=== PATIENT | female | born 1980 | race Caucasian/White ===

== ENCOUNTER 2017-10-01 19:54 | Emergency (ER) | payer BC ==
[2017-10-01 20:33] VITALS: BP 120/77; PULSE 94; TEMP 98.5; BMI 17.3
[2017-10-01] MEDS ORDERED: ALBUTEROL SO4 2.5/IPRATROPIUM 0.5 INH SOL 3 ML VIAL.NEB. NEB ONE ×2 (21:03→21:08)
[2017-10-01] MEDS ORDERED: DEXAMETHASONE SOD PHOSPHATE 10 MG/1 ML VIAL IVPUSH ONE (21:03)
--- NOTE | 2017-10-01 21:03 | PDOC ---
History of Present Illness - General Chief Complaint: Cold Symptoms Stated Complaint: COUGHING Time Seen by Provider: 10/01/17 20:55 History Source: Patient Exam Limitations: No Limitations - History of Present Illness Initial Comments: 10/01/17 21:24 MY CHIEF COMPLAINT: PRODUCTIVE COUGH FOR ONE WEEK HISTORY OF PRESENT ILLNESS: PT. IS A 37 Y/O FEMALE WITH NO SIGNIFICANT MEDICAL ISSUES HERE TODAY WITH PRODUCTIVE COUGH GREENISH YELLOWISH FOR ONE WEEK. PT. DENIES SHORTNESS OF BREATH. PT. DENIES SORE THROAT, NAUSEA, VOMITING, DIARRHEA OR FEVER. PT. DID NOT GET INFLUENZA VACCINE PT. DENIES ANY RECENT TRAVEL. Timing/Duration: getting worse (for one week ) Severity: moderate Associated Symptoms: reports: cough (productive yellowish, greenish ) Past History - Past Medical History Allergies/Adverse Reactions: Allergies Allergy/AdvReac Type Severity Reaction Status Date / Time No Known Allergies Allergy Verified 10/01/17 21:06 Home Medications: Ambulatory Orders Azithromycin [Zithromax 250mg Tablets -] 250 mg PO UTDICT #6 tab 10/01/17 Guaifenesin Dm [Mucinex Dm -] 1 tab PO Q12H PRN #10 tab.er.12h MDD 2 10/01/17 Anemia: No Asthma: No Cancer: No Cardiac Disorders: No CVA: No COPD: No DVT: No Dementia: No Diabetes: No Dialysis: No GI Disorders: No Disorders: No HTN: No Hypercholesterolemia: No Kidney Stones: No Liver Disease: No Psychiatric Problems: No Seizures: No Thyroid Disease: No Lung CA: No Other medical history: denies - Surgical History Abdominal Surgery: No Appendectomy: No Cardiac Surgery: No Cholecystectomy: No Gastric Stapling: No GI Surgery: No Lung Surgery: No Neurologic Surgery: No - Immunization History Immunization Up to Date: Yes - Suicide/Smoking/Psychosocial Hx Smoking History: Never smoked Information on smoking cessation initiated: No Hx Alcohol Use: Yes (Occasional wine) Drug/Substance Use Hx: No Substance Use Type: None Review of Systems - Review of Systems Constitutional: No: Symptoms Reported HEENTM: No: Symptoms Reported Respiratory: Yes: Productive cough (yellowish greenish). No: Cough, Orthopnea , Shortness of Breath, SOB with Exertion, SOB at Rest, Stridor, Wheezing, Hemoptysis Cardiac (ROS): No: Symptoms Reported ABD/GI: No: Symptoms Reported : No: Symptoms Reported Musculoskeletal: No: Symptoms Reported Integumentary: No: Symptoms Reported Neurological: No: Symptoms reported *Physical Exam - Vital Signs Last Vital Signs Temp Pulse Resp BP Pulse Ox 98.5 F 94 H 18 120/77 100 10/01/17 20:25 10/01/17 20:25 10/01/17 20:25 10/01/17 20:25 10/01/17 20:25 - Physical Exam General Appearance: Yes: Appropriately Dressed HEENT: positive: TMs Normal, Pharyngeal Erythema, Tonsillar Erythema (with no uvular deviation ). negative: Tonsillar Exudate, Nasal Congestion, Rhinorrhea, Sinus Tenderness Neck: positive: Lymphadenopathy (R), Lymphadenopathy (L) Respiratory/Chest: positive: Lungs Clear, Normal Breath Sounds. negative: Chest Tender, Respiratory Distress Cardiovascular: positive: Regular Rhythm, Regular Rate, S1, S2 Integumentary: positive: Normal Color Neurologic: positive: Alert, Normal Response, Responsive Medical Decision Making - Medical Decision Making 10/01/17 21:27 PT. IS A 37 Y/O FEMALE WITH NO SIGNIFICANT MEDICAL ISSUES HERE TODAY WITH PRODUCTIVE COUGH GREENISH YELLOWISH FOR ONE WEEK. PT. DENIES SHORTNESS OF BREATH. PT. DENIES SORE THROAT, NAUSEA, VOMITING, DIARRHEA OR FEVER. PT. DID NOT GET INFLUENZA VACCINE PT. DENIES ANY RECENT TRAVEL. PT. DENIES ANY CHANCE OF . PHARYNGITIS R/O STREP BRONCHITIS PLAN; DUONEB NOW AZITHROMYCIN 250 MG 2 TABS NOW THAN ONE TAB DAILY FOR THE FOLLOWING 4 DAYS MUCINEX DM 1 TAB Q12 HRS PRN COUGH # 10 TABS THROAT C & S NEGATIVE 10/01/17 21:29 *DC/Admit/Observation/Transfer Diagnosis at time of Disposition: Acute bronchitis Qualifiers: Bronchitis organism: unspecified organism Qualified Code(s): J20.9 - Acute bronchitis, unspecified - Discharge Dispostion Condition at time of disposition: Stable - Referrals Referrals: Braden Maki MD [Primary Care Provider] - - Patient Instructions Additional Instructions: FOLLOW UP WITH YOUR PRIMARY CARE PROVIDER WITHIN THE NEXT FEW DAYS DRINK A LOT OF FLUIDS AND REST RETURN TO EMERGENCY ROOM IF SYMPTOMS WORSEN PATIENT VOICED UNDERSTANDING OF DISCHARGE INSTRUCTIONS AND ALL QUESTIONS WERE ANSWERED THANK YOU FOR CHOOSING [facility] EMERGENCY ROOM FOR YOU MEDICAL NEEDS TODAY - Post Discharge Activity
[2017-10-01] MEDS ORDERED: DEXAMETHASONE SOD PHOSPHATE 10 MG/1 ML VIAL ONE (21:08)
== END 2017-10-01 21:33 | disposition home or self-care (01) ==
LOC: JERFT 19:54
PROC: 3E0F7GC Introduction of Other Therapeutic Substance into Respiratory Tract, Via Natural or Artificial Opening (ICD-10-PCS; principal; 2017-10-01)
PROC: 3E0333Z Introduction of Anti-inflammatory into Peripheral Vein, Percutaneous Approach (ICD-10-PCS; 2017-10-01)
DX: J20.9 Acute bronchitis, unspecified (principal)
CPT/HCPCS: 87070; 87430; 99281-25

== ENCOUNTER 2018-03-23 08:09 | Emergency (ER) | payer BC ==
[2018-03-23 08:25] VITALS: TEMP 98.3; BMI 17.3
[2018-03-23] MEDS ORDERED: SODIUM CHLORIDE 1,000 ML IV STA (09:06)
[2018-03-23 09:37] LABS: BASO % 1.1 % (0-2.0); EOS % 2.6 % (0-4.5); HEMOGLOBIN 13.7 GM/dL (10.7-15.3); LYMPH % 38.7 % (8-40); MCH 28.5 pg (25.7-33.7); MCHC 32.7 g/dl (32.0-36.0); MEAN CELL VOLUME 87.4 fl (80-96); MEAN PLT VOLUME 8.6 fl (7.5-11.1); MONO % 7.5 % (3.8-10.2); NEUT % 50.1 % (42.8-82.8); PLATELET COUNT 260 K/MM3 (134-434); WHITE BLOOD COUNT 5.3 K/mm3 (4.0-10.0)
[2018-03-23 09:47] LABS: URINE APPEARANCE CLEAR; URINE BILIRUBIN NEGATIVE (<2.0 mg/dL); URINE COLOR COLORLESS; URINE GLUCOSE (UA) NEGATIVE (NEGATIVE); URINE KETONE NEGATIVE (NEGATIVE); URINE LEUK ESTERASE NEGATIVE (NEGATIVE); URINE NITRITE NEGATIVE (NEGATIVE); URINE PROTEIN NEGATIVE (NEGATIVE); URINE UROBILINOGEN NEGATIVE mg/dL (0.2-1.0)
[2018-03-23 09:48] LABS: HCG,QUALITATIVE URINE NEGATIVE
--- NOTE | 2018-03-23 09:54 | PDOC ---
History of Present Illness - General Chief Complaint: Lightheaded Stated Complaint: HEADACHES, DIZZINESS Time Seen by Provider: 03/23/18 09:04 History Source: Patient Exam Limitations: No Limitations - History of Present Illness Initial Comments: 03/23/18 09:27 38-year-old female presenting to ED with complaints of generalized fatigue, intermittent lightheadedness with movement, and shortness of breath on exertion x 4 days. Patient states she was finishing her menses yesterday which was heavy for the past 5 days. She states has had menses for approximately one year stating she goes through approximately 5-6 pads in day 2-3. Patient states is extremely exhausted on day 4-5 but normally trends to baseline which she has not. Patient denies history of endometriosis, fibroids, but states had anemia as a teenager. Ptr denies fever, chest pain, calf pain, recent travel, exogenous estrogen usage, recent weight change, change in appetite, or other medical history. Timing/Duration: intermittent Severity: moderate Associated Symptoms: reports: malaise, shortness of breath (with exertion), weakness Past History - Travel Traveled outside of the country in the last 30 days: No - Past Medical History Allergies/Adverse Reactions: Allergies Allergy/AdvReac Type Severity Reaction Status Date / Time No Known Allergies Allergy Verified 03/23/18 08:22 Home Medications: Ambulatory Orders NK [No Known Home Medication] 03/23/18 Anemia: No Asthma: No Cancer: No Cardiac Disorders: No CVA: No COPD: No DVT: No Dementia: No Diabetes: No Dialysis: No GI Disorders: No Disorders: No HTN: No Hypercholesterolemia: No Kidney Stones: No Liver Disease: No Psychiatric Problems: No Seizures: No Thyroid Disease: No Lung CA: No Other medical history: DENIES. - Surgical History Abdominal Surgery: No Appendectomy: No Cardiac Surgery: No Cholecystectomy: No Gastric Stapling: No GI Surgery: No Lung Surgery: No Neurologic Surgery: No - Immunization History Immunization Up to Date: Yes - Suicide/Smoking/Psychosocial Hx Smoking History: Never smoked Hx Alcohol Use: Yes (Occasional wine) Drug/Substance Use Hx: No Substance Use Type: None Patient Lives Alone: No Lives with/in: spouse/SO Review of Systems - Review of Systems Able to Perform ROS?: Yes Constitutional: Yes: Malaise, Weakness, Weight Stable. No: Unintentional Wgt. Loss, Unexplained wgt Loss HEENTM: No: Symptoms Reported Respiratory: Yes: SOB with Exertion Cardiac (ROS): Yes: Symptoms Reported, Lightheadedness (intermittent with movement x 4 days) ABD/GI: No: Symptoms Reported : No: Symptoms Reported Musculoskeletal: No: Symptoms Reported Integumentary: No: Symptoms Reported Neurological: Yes: Weakness, Dizziness Endocrine: No: Symptoms Reported Hematologic/Lymphatic: No: Symptoms Reported *Physical Exam - Vital Signs Last Vital Signs Temp Pulse Resp BP Pulse Ox 98.3 F 70 17 112/74 100 03/23/18 08:22 03/23/18 08:22 03/23/18 08:22 03/23/18 08:22 03/23/18 08:22 - Physical Exam General Appearance: Yes: Nourished, Appropriately Dressed. No: Apparent Distress HEENT: positive: EOMI, FANTA. negative: Pale Conjunctivae Neck: positive: Normal Thyroid, Supple Respiratory/Chest: positive: Lungs Clear, Normal Breath Sounds. negative: Respiratory Distress, Accessory Muscle Use Cardiovascular: positive: Regular Rhythm, Regular Rate. negative: Murmur Gastrointestinal/Abdominal: positive: Soft, Tenderness Extremity: positive: Normal Capillary Refill. negative: Pedal Edema Integumentary: positive: Normal Color, Warm, Moist Neurologic: positive: Motor Strength 5/5 (ambulatory) Heart Score/ECG Review - ECG Intrepretation Rhythm: Regular Rhythm (Rate 59. sinus bradycardia. Intervals are regular. No ST elevation or depression) ED Treatment Course - LABORATORY CBC & Chemistry Diagram: 03/23/18 09:26 03/23/18 09:26 Medical Decision Making - Medical Decision Making 03/23/18 09:13 Patient with symptoms of fatigue, shortness of breath on exertion, and lightheadedness for the past 4 days. Patient with history of anemia as a teenager and states heavy menses. Patient concerning for anemia, thyroid disorder, electrolyte imbalance, , UTI, cardiac etiology. Pt ordered for labs, urine, EKG type and screen and will consider ultrasound once labs are resulted. PERC-. 03/23/18 10:34 Laboratory Tests 03/23/18 03/23/18 03/23/18 09:25 09:26 09:26 WBC 5.3 Hgb 13.7 Hct 42.0 Neutrophils % 50.1 PT with INR INR Sodium 139 Potassium 4.3 Chloride 104 Carbon Dioxide 28 Anion Gap 7 L Random Glucose 87 Calcium 8.8 Magnesium 2.4 Total Bilirubin 0.3 AST 14 L ALT 14 Alkaline Phosphatase 39 L Total Protein 7.7 Albumin 4.1 TSH Urine Ketones Negative Urine Nitrite Negative Urine HCG, Qual Negative 03/23/18 03/23/18 09:26 09:38 WBC Hgb Hct Neutrophils % PT with INR Pending INR Pending Sodium Potassium Chloride Carbon Dioxide Anion Gap Random Glucose Calcium Magnesium Total Bilirubin AST ALT Alkaline Phosphatase Total Protein Albumin TSH 1.87 Urine Ketones Urine Nitrite Urine HCG, Qual Patient states is feeling improvement after receiving the IV fluids. 03/23/18 11:11 X-ray shows no evidence of acute pulmonary disease. Patient to be discharged home with recommendations to follow-up with her PCP and return to ED if symptoms worsen. Patient otherwise recommended drink plenty of fluids eat well- balanced meals and rest as needed *DC/Admit/Observation/Transfer Diagnosis at time of Disposition: Weakness - Discharge Dispostion Disposition: HOME Condition at time of disposition: Good - Referrals Referrals: Amanda Quiles MD [Primary Care Provider] - - Patient Instructions Printed Discharge Instructions: DI for Fatigue Additional Instructions: At this time your labs, imaging and EKG showed no acute findings. I do recommend to eat well-balanced meals, drink plenty of fluids and rest as needed. You should see improvement over the next 2 days. Please follow up with your PCP and return to ED if your symptoms worsen. - Post Discharge Activity
[2018-03-23 10:04] LABS: ALBUMIN 4.1 g/dl (3.4-5.0); ANION GAP 7 (8-16); BLOOD UREA NITROGEN 11 mg/dL (7-18); CALCIUM 8.8 mg/dL (8.5-10.1); CHLORIDE 104 mmol/L (98-107); CO2 28 mmol/L (21-32); CREATININE 0.6 mg/dL (0.55-1.02); GLUCOSE,RANDOM 87 mg/dL (74-106); MAGNESIUM 2.4 mg/dL (1.8-2.4); POTASSIUM 4.3 mmol/L (3.5-5.1); SGOT/AST 14 U/L (15-37); SGPT/ALT 14 U/L (12-78); SODIUM 139 mmol/L (136-145)
[2018-03-23 10:06] LABS: ALK PHOS 39 U/L (45-117); BILIRUBIN,TOTAL 0.3 mg/dL (0.2-1.0); TOT PROT 7.7 g/dl (6.4-8.2)
[2018-03-23 10:33] LABS: INR 0.98 (0.82-1.09); PROTHROMBIN TIME (PATIENT) 11.1 SEC (9.7-13.0)
--- NOTE | 2018-03-23 10:50 | PDOC ---
*Physical Exam - Vital Signs Last Vital Signs Temp Pulse Resp BP Pulse Ox 98.3 F 70 17 112/74 100 03/23/18 08:22 03/23/18 08:22 03/23/18 08:22 03/23/18 08:22 03/23/18 08:22 - Physical Exam Comments: 03/23/18 10:47 Vital signs normal, Well-appearing, seated in stretcher, speaking full sentences Slightly pale skin Heart and lungs are regular and clear Heart Score/ECG Review #1 General ECG Interpretation: Sinus Rhythm, Normal Rate (59), Normal Intervals ( qtc 425), No acute ischemic changes ED Treatment Course - LABORATORY CBC & Chemistry Diagram: 03/23/18 09:26 03/23/18 09:26 - ADDITIONAL ORDERS Additional order review: Laboratory Results 03/23/18 03/23/18 03/23/18 09:38 09:26 09:26 PT with INR 11.10 INR 0.98 Sodium Potassium Chloride Carbon Dioxide Anion Gap BUN Creatinine Creat Clearance w eGFR Random Glucose Calcium Magnesium Total Bilirubin AST ALT Alkaline Phosphatase Total Protein Albumin TSH 1.87 Urine Color Urine Appearance Urine pH Ur Specific [place] Urine Protein Urine Glucose (UA) Urine Ketones Urine Blood Urine Nitrite Urine Bilirubin Urine Urobilinogen Ur Leukocyte Esterase Urine HCG, Qual Blood Type O POSITIVE Antibody Screen Negative 03/23/18 03/23/18 09:26 09:25 PT with INR INR Sodium 139 Potassium 4.3 Chloride 104 Carbon Dioxide 28 Anion Gap 7 L BUN 11 Creatinine 0.6 Creat Clearance w eGFR > 60 Random Glucose 87 Calcium 8.8 Magnesium 2.4 Total Bilirubin 0.3 AST 14 L ALT 14 Alkaline Phosphatase 39 L Total Protein 7.7 Albumin 4.1 TSH Urine Color Colorless Urine Appearance Clear Urine pH 8.0 Ur Specific [place] 1.002 Urine Protein Negative Urine Glucose (UA) Negative Urine Ketones Negative Urine Blood Negative Urine Nitrite Negative Urine Bilirubin Negative Urine Urobilinogen Negative Ur Leukocyte Esterase Negative Urine HCG, Qual Negative Blood Type Antibody Screen 03/23/18 09:26 RBC 4.80 MCV 87.4 MCHC 32.7 RDW 14.0 MPV 8.6 Neutrophils % 50.1 Lymphocytes % 38.7 Monocytes % 7.5 Eosinophils % 2.6 Basophils % 1.1 - Medications Given in the ED: ED Medications Discontinued Medications Generic Name Dose Route Start Last Admin Trade Name Freq PRN Reason Stop Dose Admin Sodium Chloride 1,000 mls @ 1,000 mls/hr 03/23/18 09:06 03/23/18 09:34 Normal Saline - IV 03/23/18 10:05 1,000 mls/hr ASDIR STA Administration Medical Decision Making - Medical Decision Making 03/23/18 10:48 Patient seen and evaluated with the nurse practitioner. I agree with the overall evaluation, assessment, and management with the following summary of visit: 38-year-old female with history of heavy menses presents with 3 days of generalized fatigue and malaise, no specific infectious complaints, slightly decreased appetite yesterday, occasional need to take a deep breath but denies any ongoing dyspnea or chest pain. No recent infections, no DVT or PE risk factors, no cardiac or neuro risk factors. No recent travel, no recent rashes, no myalgias or arthralgias. No fevers or chills. Vital signs normal, exam is nonfocal 38-year-old female with nonspecific malaise over the last 3 days. Thorough workup including labs, TSH, urinalysis and urine are within normal limits. We'll check chest x-ray given the respiratory reports If above is within normal limits, patient feel better after receiving IV fluids , and she can follow-up with her primary physician for further testing. Understands return criteria, at this time would suspect possible viral syndrome. *DC/Admit/Observation/Transfer Diagnosis at time of Disposition: Weakness - Discharge Dispostion Disposition: HOME Condition at time of disposition: Good - Referrals Referrals: Amanda Quiles MD [Primary Care Provider] - - Patient Instructions Printed Discharge Instructions: DI for Fatigue Additional Instructions: At this time your labs, imaging and EKG showed no acute findings. I do recommend to eat well-balanced meals, drink plenty of fluids and rest as needed. You should see improvement over the next 2 days. Please follow up with your PCP and return to ED if your symptoms worsen. - Post Discharge Activity
[2018-03-23 11:25] VITALS: BP 96/69; PULSE 76
--- NOTE | 2018-03-23 11:50 | EKG ---
Test Reason : Blood Pressure : / mmHG Vent. Rate : 059 BPM Atrial Rate : 059 BPM P-R Int : 134 ms QRS Dur : 088 ms QT Int : 430 ms P-R-T Axes : 042 057 040 degrees QTc Int : 425 ms SINUS BRADYCARDIA T WAVE ABNORMALITY, CONSIDER ANTERIOR ISCHEMIA ABNORMAL ECG NO PREVIOUS ECGS AVAILABLE Confirmed by MD NIKI, BAYRON ([id number]) on 03/23/2018 11:49:54 AM Referred By: Confirmed By:BAYRON PRINCE MD
== END 2018-03-23 11:25 | disposition home or self-care (01) ==
LOC: JER 08:09
PROC: 3E0337Z Introduction of Electrolytic and Water Balance Substance into Peripheral Vein, Percutaneous Approach (ICD-10-PCS; principal; 2018-03-23)
DX: R53.1 Weakness (principal)
CPT/HCPCS: 36415; 71046-TC-FY; 80053; 81003; 83735; 84443; 84703; 85025; 85610; 86850; 86900; 86901; 93005; 93010; 99283-25; J7030

== ENCOUNTER 2021-05-23 00:03 | Emergency (ER) | payer BC ==
[2021-05-23 00:25] VITALS: BP 118/78; PULSE 82; TEMP 98.6; BMI 19.6
== END 2021-05-23 01:05 | disposition left against medical advice (07) ==
LOC: JER 00:03
DX: S61.219A Laceration without foreign body of unspecified finger without damage to nail, initial encounter (principal)
CPT/HCPCS: 99281-25

== ENCOUNTER 2021-05-23 02:08 | Emergency (ER) | payer BC ==
[2021-05-23 02:19] VITALS: BP 118/91; PULSE 86; TEMP 98.2; BMI 18.4
== END 2021-05-23 03:11 | disposition home or self-care (01) ==
LOC: FER 02:08
PROC: 0HQGXZZ Repair Left Hand Skin, External Approach (ICD-10-PCS; principal; 2021-05-23)
DX: S61.215A Laceration without foreign body of left ring finger without damage to nail, initial encounter (principal)
CPT/HCPCS: 99282-25

== ENCOUNTER 2022-09-30 05:28 | Day surgery (SDC) | payer BC ==
[2022-09-29 11:11] VITALS: BMI 18.6
[2022-09-30] MEDS ORDERED: LIDOCAINE HCL 2% 100 MG/5 ML DISP.SYRIN ONE (08:29)
[2022-09-30] MEDS ORDERED: PROPOFOL 20 ML ONE (08:29)
[2022-09-30] MEDS ORDERED: MIDAZOLAM HCL 2 MG/2 ML SINGLE DOSE VIAL ONE (08:29)
[2022-09-30] MEDS ORDERED: FENTANYL CITRATE/PF 50 MCG/ML VIAL ONE ×2 (08:29→10:31)
[2022-09-30] MEDS ORDERED: oxyCODONE HCL 5 MG TABLET PO PRN ×3 (09:22→10:20)
[2022-09-30] MEDS ORDERED: ONDANSETRON 4 MG/2 ML VIAL IVPUSH PRN ×2 (09:22→10:20)
[2022-09-30] MEDS ORDERED: IBUPROFEN 600 MG TABLET (FP) PO PRN (09:22)
[2022-09-30] MEDS ORDERED: IBUPROFEN 800 MG/8 ML IJ IVPB PRN (09:22)
[2022-09-30] MEDS ORDERED: ELECTROLYTE-148 SOLN 1,000 ML IV SCH (09:30)
[2022-09-30] MEDS ORDERED: DEXAMETHASONE SOD PHOSPHATE 4 MG/1 ML VIAL ONE (09:37)
[2022-09-30] MEDS ORDERED: KETOROLAC TROMETHAMINE 30 MG/1 ML VIAL ONE (09:37)
[2022-09-30] MEDS ORDERED: PROMETHAZINE HCL 25 MG/1 ML VIAL IVPUSH PRN (10:20)
[2022-09-30] MEDS ORDERED: LACTATED RINGERS SOLUTION 1,000 ML IV SCH (10:30)
[2022-09-30] MEDS ORDERED: ONDANSETRON 4 MG/2 ML VIAL ONE (10:50)
[2022-09-30] MEDS ORDERED: ONDANSETRON 4 MG/2 ML VIAL IVPUSH ONE (10:53)
[2022-09-30] MEDS ORDERED: PROMETHAZINE HCL 25 MG/1 ML VIAL ONE (11:13)
[2022-09-30] MEDS ORDERED: PROMETHAZINE HCL 25 MG/1 ML VIAL IVPB ONE (11:16)
[2022-09-30 13:24] VITALS: RESP 20; TEMP 97.8
[2022-09-30 16:31] VITALS: BP 105/60; PULSE 84
== END 2022-09-30 16:31 | disposition home or self-care (01) ==
LOC: JASU-SURG 05:28
PROVIDERS: ATTEND Obstetrics & Gynecology
PROC: 0UDB7ZX Extraction of Endometrium, Via Natural or Artificial Opening, Diagnostic (ICD-10-PCS; 2022-09-30)
PROC: 0UB98ZX Excision of Uterus, Via Natural or Artificial Opening Endoscopic, Diagnostic (ICD-10-PCS; principal; 2022-09-30 09:00)
DX: N92.1 Excessive and frequent menstruation with irregular cycle (principal); N84.0 Polyp of corpus uteri
CPT/HCPCS: 81025; 88305-TC; 94760